=== PATIENT | female | born 1960 | race Caucasian/White ===

== ENCOUNTER 2017-05-20 16:52 | Emergency (ER) | payer BC ==
[2017-05-20 17:15] VITALS: BP 142/87
[2017-05-20] MEDS ORDERED: Sodium Chloride 0.9% 10 ML Syringe FLUSH PRN (17:28)
[2017-05-20] MEDS ORDERED: Ondansetron 4 MG/2 ML SDV IVPUSH ONE (17:28)
[2017-05-20] MEDS ORDERED: Meclizine 25 MG Tab PO ONE (17:29)
[2017-05-20] MEDS ORDERED: Cetirizine 10 MG Tab PO ONE (17:29)
[2017-05-20] MEDS ORDERED: Sodium Chloride 0.9% 1,000 ML IV ONE (17:33)
--- NOTE | 2017-05-20 17:33 | EDM.PDOC ---
ED HPI GENERAL MEDICAL PROBLEM - General Chief Complaint: ENT Problem Stated Complaint: DIZZY/NAUSEA Time Seen by Provider: 05/20/17 17:15 Source of Information: Reports: Patient History Limitations: Reports: No Limitations - History of Present Illness INITIAL COMMENTS - FREE TEXT/NARRATIVE: Marline is an otherwise healthy 56 year old female who presents to the ED today with her Efe for evaluation of abrupt onset of a room spinning sensation. Patient denies hx of. She does endorse nausea, denies any vomiting , fever, diarrhea or other c/o. Patient does reports issues with mx ear infection and surgery in left ear in the past, dizziness is worse when she looks left. Onset: Today, Sudden - Related Data Allergies Allergy/AdvReac Type Severity Reaction Status Date / Time No Known Allergies Allergy Verified 05/20/17 17:07 Home Meds: Home Meds Escitalopram [Lexapro] 05/20/17 [History] Meloxicam 05/20/17 [History] NK [No Known Home Meds] 05/20/17 [History] Simvastatin [Zocor] 05/20/17 [History] Past Medical History - Past Surgical History HEENT Surgical History: Reports: Myringotomy w Tube(s) GI Surgical History: Reports: Cholecystectomy Female Surgical History: Reports: Section, Hysterectomy Social & Family History - Tobacco Use Smoking Status *Q: Never Smoker ED ROS ENT - Review of Systems Review Of Systems: See Below Constitutional: Reports: No Symptoms HEENT: Reports: Vertigo. Denies: Dental Pain, Ear Discharge, Ear Pain, Vision Change Respiratory: Reports: No Symptoms Cardiovascular: Reports: No Symptoms GI/Abdominal: Reports: Nausea : Reports: No Symptoms Musculoskeletal: Reports: No Symptoms Skin: Reports: No Symptoms ED EXAM, ENT - Physical Exam Exam: See Below Exam Limited By: No Limitations General Appearance: Alert, WD/WN, Anxious Eye Exam: Left Eye: Nystagmus (+1), Bilateral Eye: EOMI, PERRL Ears: Normal External Exam, Normal Canal, Normal TMs, Other (scarred left TM with canal reconstruction) Mouth/Throat: Normal Inspection, Normal Oropharynx Head: Atraumatic Neck: Normal Inspection, Supple, Non-Tender Respiratory/Chest: No Respiratory Distress, Lungs Clear Cardiovascular: Normal Peripheral Pulses, Regular Rate, Rhythm, No Murmur GI/Abdominal: Normal Bowel Sounds, Soft, Non-Tender Back: Normal Inspection Extremities: Normal Inspection, Normal Range of Motion, Non-Tender Neurological: Alert, Oriented, CN II-XII Intact, Normal Reflexes Psychiatric: Normal Affect, Normal Mood Skin: Warm, Dry, Intact Lymphatic: No Adenopathy Course - Vital Signs Last Recorded V/S: Last Vital Signs Temp 36.0 C 05/20/17 17:14 Pulse 60 05/20/17 17:14 Resp 16 05/20/17 17:14 BP 142/87 H 05/20/17 17:14 Pulse Ox 99 05/20/17 17:14 Marline is a 56 year old otherwise healthy female who presents to the ED tonight with c/o sudden onset of a "room spinning sensation". Patient reports she was just sitting and drinking water when her symptoms started. Patient on exam is alert and oriented, she has 1 beat nystagmus to left lateral gaze, her remaining neuro/focal exam is intact. She is well hydrated and non-toxic appearing. Patient's hx and exam findings are consistent with acute Benign positional vertigo. [place] Hallpike confirms left sided involvement. Eply maneuver attempted with minimal relief. CT scan of head obtained to rule out any acute intracranial pathology and is fortunately negative. CBC and CMP are within normal limits. Patient was given one liter of NS with IV zofran and ativan as well as oral Meclizine and Zyrtec and reports her symptoms have greatly improved. I discussed my exam findings and test results with patient in detail. I feel at this time she is stable to be discharged home. We discussed BPV at length. I recommended staying well hydrated, taking either Zyrtec or Claritin daily. I prescribed patient Meclizine as needed TID for dizziness/nausea. I also sent patient home with instructions on Eply maneuver at home as well as half somersault maneuver. Patient is here for the week, reasons to return to the ED were discussed in detail. IF symptoms persist after patient returns home, I encouraged her to follow up with ENT. patient is agreeable to plan of care, questions were answered and patient was discharged in stable condition. - Orders/Labs/Meds Orders: Active Orders 24 hr Category Date Time Status Peripheral IV Care [RC] . DIRECTED Care 05/20/17 17:28 Active Head wo Cont [CT] Stat Exams 07/28/17 18:18 Taken Sodium Chloride 0.9% [Saline Flush] Med 05/20/17 17:28 Active 10 ml FLUSH ASDIRECTED PRN Peripheral IV Insertion Adult [OM.PC] Routine Oth 05/20/17 17:28 Ordered Medication Orders Sodium Chloride (Saline Flush) 10 ml FLUSH ASDIRECTED PRN PRN Reason: Keep Vein Open Last Admin: 05/20/17 17:41 Dose: 10 ml Labs: Laboratory Tests 05/20/17 05/20/17 Range/Units 17:40 17:40 WBC 7.5 (4.5-11.0) K/uL RBC 4.31 (3.30-5.50) M/uL Hgb 12.7 (12.0-15.0) g/dL Hct 39.2 (36.0-48.0) % MCV 91 (80-98) fL MCH 30 (27-31) pg MCHC 32 (32-36) % Plt Count 305 (150-400) K/uL Neut % (Auto) 51 (36-66) % Lymph % (Auto) 37 (24-44) % [place] % (Auto) 9 H (2-6) % Eos % (Auto) 2 (2-4) % Baso % (Auto) 1 (0-1) % Sodium 141 (140-148) mmol/L Potassium 3.8 (3.6-5.2) mmol/L Chloride 104 (100-108) mmol/L Carbon Dioxide 32 (21-32) mmol/L Anion Gap 4.9 L (5.0-14.0) mmol/L BUN 16 (7-18) mg/dL Creatinine 0.9 (0.6-1.0) mg/dL Est Cr Clr Drug Dosing 55.80 mL/min Estimated GFR (MDRD) > 60 (>60) Glucose 110 H (74-106) mg/dL Calcium 8.9 (8.5-10.1) mg/dL Total Bilirubin 0.3 (0.2-1.0) mg/dL AST 16 (15-37) U/L ALT 29 (12-78) U/L Alkaline Phosphatase 73 (46-116) U/L Total Protein 7.1 (6.4-8.2) g/dL Albumin 3.7 (3.4-5.0) g/dL Globulin 3.4 (2.3-3.5) g/dL Albumin/Globulin Ratio 1.1 L (1.2-2.2) Meds: Medications Generic Name Dose Route Start Last Admin Trade Name Fregustavo PRN Reason Stop Dose Admin Sodium Chloride 10 ml 05/20/17 17:28 05/20/17 17:41 Saline Flush FLUSH 10 ml ASDIRECTED PRN Administration Keep Vein Open Discontinued Medications Generic Name Dose Route Start Last Admin Trade Name Charles PRN Reason Stop Dose Admin Cetirizine HCl 10 mg 05/20/17 17:29 05/20/17 17:41 Zyrtec PO 05/20/17 17:30 10 mg ONETIME ONE Administration Sodium Chloride 1,000 mls @ 999 mls/hr 05/20/17 17:33 05/20/17 17:42 Normal Saline IV 05/20/17 18:33 999 mls/hr .BOLUS ONE Administration Lorazepam 0.5 mg 05/20/17 18:19 05/20/17 18:32 Ativan PO 05/20/17 18:20 0.5 mg ONETIME ONE Administration Meclizine HCl 25 mg 05/20/17 17:29 05/20/17 17:41 Antivert PO 05/20/17 17:30 25 mg ONETIME ONE Administration Ondansetron HCl 4 mg 05/20/17 17:28 05/20/17 17:41 Zofran IVPUSH 05/20/17 17:29 4 mg ONETIME ONE Administration Departure - Departure Time of Disposition: 20:00 Disposition: Home, Self-Care 01 Condition: Good Clinical Impression: Benign paroxysmal positional vertigo of left ear - Discharge Information Instructions: Benign Positional Vertigo Referrals: PCP,None [Primary Care Provider] - Forms: ED Department Discharge Additional Instructions: Marline, Keep well hydrated. Take the Meclizine for vertigo/nausea as needed. Take either a Zyrtec or Claritin Daily Try the Eply or Half somersault maneuvers for your symptoms. If you develop any worsening symptoms please return to the ED. If you continue to have symptoms when you return home, please follow up with ENT. It was nice meeting you, I hope you feel better soon. - My Orders Last 24 Hours: My Active Orders 05/20/17 17:28 Peripheral IV Care [RC] . DIRECTED Sodium Chloride 0.9% [Saline Flush] 10 ml FLUSH ASDIRECTED PRN Peripheral IV Insertion Adult [OM.PC] Routine 05/20/17 18:18 Head wo Cont [CT] Stat - Assessment/Plan Last 24 Hours: My Active Orders 05/20/17 17:28 Peripheral IV Care [RC] . DIRECTED Sodium Chloride 0.9% [Saline Flush] 10 ml FLUSH ASDIRECTED PRN Peripheral IV Insertion Adult [OM.PC] Routine 05/20/17 18:18 Head wo Cont [CT] Stat
[2017-05-20] MEDS ORDERED: LORazepam 0.5 MG Tab PO ONE (18:19)
== END 2017-05-20 19:50 | disposition home or self-care (01) ==
LOC: JP.ED 16:52
DX: H81.12 Benign paroxysmal vertigo, left ear (principal); Z96.22 Myringotomy tube(s) status; Z90.710 Acquired absence of both cervix and uterus; Z90.49 Acquired absence of other specified parts of digestive tract
CPT/HCPCS: 36415; 70450; 80053; 85025; 96361; 96374; 99285; A9270; J2405; J7040; J7050